=== PATIENT | female | born 1995 | race Caucasian/White ===

== ENCOUNTER 2017-02-06 22:34 | Emergency (ER) | payer SELFPAY ==
[~2017-02-06] VITALS: Ht 167.6 cm; Wt 68.0 kg
[2017-02-06] MEDS ORDERED: PROAIR HFA0.09 MG/AC IH (22:41)
[2017-02-06] MEDS ORDERED: SINGULAIR10 MG PO (22:42)
--- NOTE | 2017-02-06 22:48 | Emergency Room Report ---
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 N Clinical Suspician of Infection? N Mental Status: 1 - Regular (Normal Baseline) Sepsis Risk:Possible Sepsis Risk Have you (or family members/close friends) recently traveled outside the [place]? N If Yes, where/when: Have you had exposure to infectious disease within the past month? N TB? Other? Specify: Source patient, RN notes reviewed, family, old records Exam Limitations no limitations Comment wf with hx of asthma with acute episode and presents for treatment as she has no inhaler or pcp-denied fever/prod cough and no rash and denied Cardiac Chest Pain Chest pain indicative of cardiac No Timing/Duration this evening Severity moderate ALLERGIES Coded Allergies: No Known Allergies (02/06/17) Home Medications Reported Medications Albuterol Sulfate (Proair Hfa) 1 PUFF IH Q6HP PRN ASTHMA Montelukast Sodium (Singulair) 10 MG PO QHS History Medical History General CAD? No Angina: No [place]: No Hypertension? No Hyperlipidemia? No CHF? No DVT? No PE? No COPD? No Asthma? Yes Anemia? No GERD? No Gastric ulcers? No GI Bleed? No Hernia? No Thyroid Problems? No Hypothyroidism? No CVA? No Seizures? No Diabetes? No Renal Insuffiency? No End Stage Renal Disease? No UTI? No Stones? No BPH? No GB Disease: No Nephritic Syndrome? No Asplenia? No Hepatitis? No Sickle Cell Disease? No Arthritis? No Migraines? No Cataracts? No Glaucoma? No MRSA? No HIV? No TB? No Anxiety? Yes Depression? Yes Cancer? 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 Respiratory see HPI, cough, shortness of breath, wheezing Cardiovascular denies chest pain, denies syncope Gastrointestinal denies abdominal pain, denies diarrhea, denies vomiting Genitourinary denies: dysuria, frequency, hesitancy, hematuria. Musculoskeletal denies back pain, denies joint pain, denies joint swelling, denies neck pain Skin denies rash Psychiatric/Neurological denies headache, denies seizure Physical Exam Vital Signs Vital Signs Date Time Temp Pulse Resp B/P Pulse O2 O2 Flow FiO2 Ox Delivery Rate 02/07 2236 98.1 104 24 161/49 97 - WBC >12,000 or <4,000 or 10% bands? 2 or more SIRS Criteria Met? B/P:161/49 MAP:86 Creatinine >2.0? UA output<0.5ml/kg/hr for 2 hrs? Platelet count >100,000? Lactate >2.0mmol/1? INR >1.2 or PTT > than 60 sec? Evidence of Organ Dysfunction? Provider documented clinical suspician of infection? N Sepsis Criteria Count: 2 Sepsis Risk: Possible Sepsis Risk General Appearance no apparent distress Eye Exam - bilateral eye PERRL, bilateral eye EOMI Ear, Nose, Throat normal ENT inspection Neck supple Respiratory Status No: respiratory distress, use of accessory muscles. Lung Sounds bilateral: wheezing. 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 No Results/Orders Current Medication Orders Sig/Sujit Start time Last Medication Dose Route Stop Time Status Admin Albuterol 2 PUFFS ONCE ONE 02/06 2300 DC 02/06 IH 02/06 Miscellaneous 1 UNIT ONCE ONE 02/06 2300 DC 02/06 XX 02/06 Albuterol 0 .STK-MED ONE 02/06 2258 DC IH Albuterol/Ipratropium 0 .STK-MED ONE 02/06 2258 DC INH Miscellaneous 0 .STK-MED ONE 02/06 2258 DC XX Albuterol/Ipratropium 3 ML ONCE ONE 02/06 2245 DC 02/06 INH 02/06 2246 2304 Orders Procedure Date/time Status RT REQUEST ALBUTEROL INHALER 02/07 2248 Active RT REQUEST DUONEB 02/07 2244 Active Progress ED Progress Notes Date 02/06/17 Time 2322 Comment improved Departure Departure Time of Disposition 2318 Disposition DC Home or Self Care(routine) Clinical Impression Primary Impression: Asthma attack Condition STABLE Patient Instructions DI for Asthma -- Adult Additional Instructions use meds and see pcp for follow up Discharge Counseling Counseled pt/family regarding diagnosis, medications/RX, follow up needs Prescriptions Current Visit Scripts Prednisone (Prednisone 20MG) 20 MG PO BID #12 TAB ED Critical Care Critical Care No at 2322
--- NOTE | 2017-02-06 22:48 | Emergency Room Report ---
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 N Clinical Suspician of Infection? N Mental Status: 1 - Regular (Normal Baseline) Sepsis Risk:Possible Sepsis Risk Have you (or family members/close friends) recently traveled outside the [place]? N If Yes, where/when: Have you had exposure to infectious disease within the past month? N TB? Other? Specify: Source patient, RN notes reviewed, family, old records Exam Limitations no limitations Comment wf with hx of asthma with acute episode and presents for treatment as she has no inhaler or pcp-denied fever/prod cough and no rash and denied Cardiac Chest Pain Chest pain indicative of cardiac No Timing/Duration this evening Severity moderate ALLERGIES Coded Allergies: No Known Allergies (02/06/17) Home Medications Reported Medications Albuterol Sulfate (Proair Hfa) 1 PUFF IH Q6HP PRN ASTHMA Montelukast Sodium (Singulair) 10 MG PO QHS History Medical History General CAD? No Angina: No [place]: No Hypertension? No Hyperlipidemia? No CHF? No DVT? No PE? No COPD? No Asthma? Yes Anemia? No GERD? No Gastric ulcers? No GI Bleed? No Hernia? No Thyroid Problems? No Hypothyroidism? No CVA? No Seizures? No Diabetes? No Renal Insuffiency? No End Stage Renal Disease? No UTI? No Stones? No BPH? No GB Disease: No Nephritic Syndrome? No Asplenia? No Hepatitis? No Sickle Cell Disease? No Arthritis? No Migraines? No Cataracts? No Glaucoma? No MRSA? No HIV? No TB? No Anxiety? Yes Depression? Yes Cancer? 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 Respiratory see HPI, cough, shortness of breath, wheezing Cardiovascular denies chest pain, denies syncope Gastrointestinal denies abdominal pain, denies diarrhea, denies vomiting Genitourinary denies: dysuria, frequency, hesitancy, hematuria. Musculoskeletal denies back pain, denies joint pain, denies joint swelling, denies neck pain Skin denies rash Psychiatric/Neurological denies headache, denies seizure Physical Exam Vital Signs Vital Signs Date Time Temp Pulse Resp B/P Pulse O2 O2 Flow FiO2 Ox Delivery Rate 02/07 2236 98.1 104 24 161/49 97 - WBC >12,000 or <4,000 or 10% bands? 2 or more SIRS Criteria Met? B/P:161/49 MAP:86 Creatinine >2.0? UA output<0.5ml/kg/hr for 2 hrs? Platelet count >100,000? Lactate >2.0mmol/1? INR >1.2 or PTT > than 60 sec? Evidence of Organ Dysfunction? Provider documented clinical suspician of infection? N Sepsis Criteria Count: 2 Sepsis Risk: Possible Sepsis Risk General Appearance no apparent distress Eye Exam - bilateral eye PERRL, bilateral eye EOMI Ear, Nose, Throat normal ENT inspection Neck supple Respiratory Status No: respiratory distress, use of accessory muscles. Lung Sounds bilateral: wheezing. 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 No Results/Orders Current Medication Orders Sig/Sujit Start time Last Medication Dose Route Stop Time Status Admin Albuterol 2 PUFFS ONCE ONE 02/06 2300 DC 02/06 IH 02/06 Miscellaneous 1 UNIT ONCE ONE 02/06 2300 DC 02/06 XX 02/06 Albuterol 0 .STK-MED ONE 02/06 2258 DC IH Albuterol/Ipratropium 0 .STK-MED ONE 02/06 2258 DC INH Miscellaneous 0 .STK-MED ONE 02/06 2258 DC XX Albuterol/Ipratropium 3 ML ONCE ONE 02/06 2245 DC 02/06 INH 02/06 2246 2304 Orders Procedure Date/time Status RT REQUEST ALBUTEROL INHALER 02/07 2248 Active RT REQUEST DUONEB 02/07 2244 Active Progress ED Progress Notes Date 02/06/17 Time 2322 Comment improved Departure Departure Time of Disposition 2318 Disposition DC Home or Self Care(routine) Clinical Impression Primary Impression: Asthma attack Condition STABLE Patient Instructions DI for Asthma -- Adult Additional Instructions use meds and see pcp for follow up Discharge Counseling Counseled pt/family regarding diagnosis, medications/RX, follow up needs Prescriptions Current Visit Scripts Prednisone (Prednisone 20MG) 20 MG PO BID #12 TAB ED Critical Care Critical Care No at 2320
[2017-02-06] MEDS ORDERED: PREDNISONE 20MG20 MG PO (23:23)
[2017-02-06 23:45] VITALS: BP 131/78
== END 2017-02-06 23:46 | disposition home or self-care (01) ==
LOC: ER 22:34
DX: J45.901 Unspecified asthma with (acute) exacerbation (principal)

== ENCOUNTER 2017-03-27 18:45 | Emergency (ER) | payer MEDICAID ==
[~2017-03-27] VITALS: Ht 167.6 cm; Wt 65.8 kg
[~2017-03-27 18:45] MED LIST: PREDNISONE 20MG20 MG PO; PROAIR HFA0.09 MG/AC IH; SINGULAIR10 MG PO
[2017-03-27 19:03] LABS: HEMOGLOBIN 12.3 g/dL (12.2-16.2); LYMPH # 1.7 K/mm3 (0.7-4.5)
--- OUTSIDE RECORDS SUMMARY | 2017-03-27 19:19 | External Medical Summary Rpt | CCD ---
Author Author , YOLY FREDERICK Address Unknown Phone [email or web address] Purpose Continuity of Care Document - through 2016 Problems Code Diagnosis DOS Provider Status J45.901 UNSPECIFIED ASTHMA WITH (ACUTE) EXACERBATIO N
--- OUTSIDE RECORDS SUMMARY | 2017-03-27 19:19 | External Medical Summary Rpt | CCD ---
Demographics Preferred Language Burmese Marital Status Unknown Episcopalian Affiliation Unknown Race Unknown Ethnic Group Unknown Author Author , YOLY FREDERICK Address Unknown Phone Immunization Unable to retrieve immunization data due to connection failure with Immunization Registry. Please try again later.
--- OUTSIDE RECORDS SUMMARY | 2017-03-27 19:19 | External Medical Summary Rpt | CCD ---
Demographics Preferred Language Omani Marital Status Unknown Tenriism Affiliation Unknown Race Unknown Ethnic Group Unknown Author Author , YOLY FREDERICK Address Unknown Phone Immunization Unable to retrieve immunization data due to connection failure with Immunization Registry. Please try again later.
--- OUTSIDE RECORDS SUMMARY | 2017-03-27 19:19 | External Medical Summary Rpt | CCD ---
Author Author , YOLY FREDERICK Address Unknown Phone Purpose Continuity of Care Document - through 2016 Problems Code Diagnosis DOS Provider Status J45.901 UNSPECIFIED ASTHMA WITH (ACUTE) EXACERBATIO N
--- OUTSIDE RECORDS SUMMARY | 2017-03-27 19:19 | External Medical Summary Rpt ---
Author Author YOLY Albarado, YOLY Albarado Organization [employer] Address Unknown Phone Unavailable
--- OUTSIDE RECORDS SUMMARY | 2017-03-27 19:19 | External Medical Summary Rpt | CCD ---
Author Author [employer] Organization [employer] Address Unknown Phone Unavailable Purpose Continuity of Care Document - through 2016
--- NOTE | 2017-03-27 19:30 | Emergency Room Report ---
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 N Clinical Suspician of Infection? N Mental Status: 1 - Regular (Normal Baseline) Sepsis Risk:Possible Sepsis Risk Have you (or family members/close friends) recently traveled outside the [place]? N If Yes, where/when: Have you had exposure to infectious disease within the past month? TB? Other? Specify: Source patient, RN notes reviewed, family, old records Exam Limitations no limitations Comment pt with hx of astma with acute episode tonight Cardiac Chest Pain Chest pain indicative of cardiac No Timing/Duration this evening Severity moderate ALLERGIES Coded Allergies: No Known Allergies (02/06/17) Home Medications Reported Medications Albuterol Sulfate (Proair Hfa) 1 PUFF IH Q6HP PRN ASTHMA Montelukast Sodium (Singulair) 10 MG PO QHS History Medical History General CAD? No Angina: No [place]: No Hypertension? No Hyperlipidemia? No CHF? No DVT? No PE? No COPD? No Asthma? Yes Anemia? No GERD? No Gastric ulcers? No GI Bleed? No Hernia? No Thyroid Problems? No Hypothyroidism? No CVA? No Seizures? No Diabetes? No Renal Insuffiency? No End Stage Renal Disease? No UTI? No Stones? No BPH? No GB Disease: No Nephritic Syndrome? No Asplenia? No Hepatitis? No Sickle Cell Disease? No Arthritis? No Migraines? No Cataracts? No Glaucoma? No MRSA? No HIV? No TB? No Anxiety? Yes Depression? Yes Cancer? 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 Respiratory see HPI, cough, shortness of breath, wheezing Cardiovascular denies chest pain, denies syncope Gastrointestinal denies abdominal pain, denies diarrhea, denies vomiting Genitourinary denies: dysuria, frequency, hesitancy, hematuria. Musculoskeletal denies back pain, denies joint pain, denies joint swelling, denies neck pain Skin denies rash Psychiatric/Neurological denies headache, denies seizure Physical Exam Vital Signs Vital Signs Date Time Temp Pulse Resp B/P Pulse O2 O2 Flow FiO2 Ox Delivery Rate 03/277 98.4 116 26 154/59 97 - WBC >12,000 or <4,000 or 10% bands? 2 or more SIRS Criteria Met? B/P:154/59 MAP:90 Creatinine >2.0? UA output<0.5ml/kg/hr for 2 hrs? Platelet count >100,000? Lactate >2.0mmol/1? INR >1.2 or PTT > than 60 sec? Evidence of Organ Dysfunction? Provider documented clinical suspician of infection? N Sepsis Criteria Count: 2 Sepsis Risk: Possible Sepsis Risk General Appearance no apparent distress Eye Exam - bilateral eye PERRL, bilateral eye EOMI Ear, Nose, Throat normal ENT inspection Neck supple Respiratory Status No: respiratory distress, use of accessory muscles. Lung Sounds bilateral: wheezing. 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 No Results/Orders Laboratory Tests 03/27/17 1852: Sodium 141, Potassium 3.9, Chloride 108 H, Carbon Dioxide 26, BUN 13, Creatinine 0.7, Estimated Creat Clear 134, Estimated GFR (MDRD) 108, Glucose 81, Calcium 8.6, Total Bilirubin 0.3, AST 9 L, ALT 15, Alkaline Phosphatase 65, Total Protein 6.9, Albumin 3.8, Globulin 3.1, Albumin/Globulin Ratio 1.2, WBC 8.1, RBC 4.52, Hgb 12.3, Hct 37.4, MCV 82.7, RDW 14.4, Plt Count 277, MPV 7.2 L , Gran % 64.4, Gran # 5.2, Lymphocytes % 21.0, Monocytes % 7.9, Eosinophils % 5.8, Basophils % 0.9, Lymphocytes # 1.7, Monocytes # 0.6, Eosinophils # 0.5 H, Basophils # 0.1, PUBS MCHC 32.8, MCH 27.2 Current Medication Orders Sig/Sujit Start time Last Medication Dose Route Stop Time Status Admin Albuterol 2 PUFFS ONCE ONE 03/27 1945 AC IH 03/27 1946 Miscellaneous 1 UNIT ONCE ONE 03/27 1945 AC XX 03/27 1946 Albuterol 0 .STK-MED ONE 03/27 1937 DC IH Miscellaneous 0 .STK-MED ONE 03/27 1937 DC XX Albuterol 2.5 MG ONCE ONE 03/27 1900 DC 03/27 INH 03/27 Methylprednisolone 125 MG ONCE ONE 03/27 1900 DC 03/27 Sodium Succinate IV 03/27 Sodium Chloride 10 ML PRN PRN 03/27 1900 AC IV 03/28 1852 Methylprednisolone 0 .STK-MED ONE 03/27 1854 DC Sodium Succinate .ROUTE Albuterol 0 .STK-MED ONE 03/27 1850 DC INH Orders Procedure Date/time Status RT REQUEST ALBUTEROL INHALER 03/27 1934 Active CHEST(2 VIEWS-NOT PORTABLE) 03/27 1857 Active URINE 03/27 1857 Complete RT REQUEST ALBUTEROL NEB 03/27 1853 Active IV SALINE LOCK 03/27 1852 Active CBC WITH AUTO DIFF 03/27 1852 Complete CHEM 12 PROFILE 03/27 1852 Complete XRAY/CT/US XRAY/CT/US XRAY chest XR interpretation by reviewed by me Xray Results normal/NAD Departure Departure Time of Disposition 1935 Disposition DC Home or Self Care(routine) Clinical Impression Primary Impression: Asthma attack Qualifiers: Asthma severity: moderate Asthma persistence: unspecified Qualified Code: J45.901 - Unspecified asthma with (acute) exacerbation Condition STABLE Patient Instructions DI for Asthma -- Adult Additional Instructions use meds and see pcp for follow up Discharge Counseling Counseled pt/family regarding diagnosis, test results, medications/RX, follow up needs Prescriptions Current Visit Scripts Prednisone (Prednisone 20MG) 20 MG PO BID #10 TAB ED Critical Care Critical Care No at 1937
[2017-03-27] MEDS ORDERED: PREDNISONE 20MG20 MG PO (19:37)
[2017-03-27 19:48] VITALS: BP 154/59
--- NOTE | 2017-03-27 21:44 | RADIOLOGY REPORT PS360 ---
CHEST(2 VIEWS-NOT PORTABLE) HISTORY: Shortness of breath with wheezing ASTHMA ATTACK ORDERING PHYSICIAN: Rajendra Bowles MD PATIENT AGE: 21 years COMPARISON: None available FINDINGS: The cardiomediastinal silhouette and pulmonary vascularity are within normal limits. The lungs are clear without infiltrates, suspicious nodules, or pleural effusions. No acute bony abnormalities. IMPRESSION: Negative chest, no acute finding
== END 2017-03-27 19:48 | disposition home or self-care (01) ==
LOC: ER 18:45
PROVIDERS: Emergency Medicine
DX: J45.901 Unspecified asthma with (acute) exacerbation (principal)

== ENCOUNTER 2017-03-31 17:57 | Emergency (ER) | payer MEDICAID ==
[~2017-03-31] VITALS: Ht 167.6 cm; Wt 68.0 kg
--- OUTSIDE RECORDS SUMMARY | 2017-03-31 18:19 | External Medical Summary Rpt | CCD ---
Author Author , [employer] Organization [employer] Address Unknown Phone [email or web address] Purpose Continuity of Care Document - 03-27-2017 through 2016 Problems Code Diagnosis DOS Provider Status J45.901 UNSPECIFIED ASTHMA WITH (ACUTE) EXACERBATIO N Results Labs Lab Lab Date Result Refere Interp Status Commen Order Detail nces retati t Range on Urine test (03-27-2017 19:03) Urine = NEG complet pregnan 017 NEGATIV ed cy test 19:03 E Comprehensive metabolic panel (03-27-2017 18:52) Protein = 6.9 6.4-8.2 complet total 017 gm/dL ed ser/wiliam 18:52 s ALT = 15 12-78 complet (SGPT) 017 U/L ed ser/wiliam 18:52 s Serum = 9 U/L 15-37 complet or 017 ed plasma 18:52 asparta te aminotr ansfera Serum = 141 136-145 complet sodium 017 mmoL/L ed measure 18:52 ment Serum = 3.9 3.5-5.1 complet potassi 017 mmoL/L ed um 18:52 measure ment Serum = 81 74-106 complet or 017 mg/dL ed plasma 18:52 glucose measure ment (mas Serum = 3.1 1.3-3.2 complet globuli 017 gm/dL ed n 18:52 measure ment (mass/v olume) Estimat = 108 59- complet ed 017 ML/MIN ed glomeru 18:52 lar filtrat ion rate (GF Comment: REFERENCE RANGE: >60 ML/MIN/1.73 SQUARE METERS Comment: If this patient is -Nigerien, then multiply the Comment: result by 1.210. Estimat = 134 50-200 complet ion of 017 ML/MIN ed creatin 18:52 ine renal clearan ce Serum = 0.7 0.55-1. complet or 017 mg/dL 02 ed plasma 18:52 creatin ine measure ment ( Carbon = 26 21.0-32 complet dioxide 017 mmoL/L .0 ed 18:52 measure ment Serum = 108 98-107 complet or 017 mmoL/L ed plasma 18:52 chlorid e measure ment (mo Serum = 8.6 8.5-10. complet or 017 mg/dL 1 ed plasma 18:52 calcium measure ment (mas Serum = 13 7-18 complet or 017 mg/dL ed plasma 18:52 urea nitroge n measure men Serum = 0.3 0.2-1.0 complet or 017 mg/dL ed plasma 18:52 total bilirub in measure m Serum = 65 46-116 complet or 017 U/L ed plasma 18:52 alkalin e phospha tase clifton Serum = 3.8 3.4-5.0 complet or 017 gm/dL ed plasma 18:52 albumin measure ment (mas Serum = 1.2 1.1-1.8 complet or 017 ed plasma 18:52 albumin /globul in mass ra
--- OUTSIDE RECORDS SUMMARY | 2017-03-31 18:19 | External Medical Summary Rpt | CCD ---
Author Author , [employer] Organization [employer] Address Unknown Phone [email or web address] Purpose Continuity of Care Document - 03-27-2017 [...] SQUARE METERS Comment: If this patient is -Nepalese, then multiply the Comment: result by 1.210. [...]
--- OUTSIDE RECORDS SUMMARY | 2017-03-31 18:20 | External Medical Summary Rpt ---
Author Author NILAMARY Albarado, [employer] Organization [employer] Address Unknown Phone Unavailable Results Choriogonadotropin.beta subunit [Units] in 24 hour Urine Observa Value Referen Units Interpr Notes Date tion ce etation Range Choriogon NEG No No No Mar 27 adotropin informati informati informati 2017 7:03 .beta on in on in on in PM subunit source source source [Units] data data data in 24 hour Urine Comprehensive metabolic 2000 panel in Serum or Plasma Observa Value Referen Units Interpr Notes Date tion ce etation Range Albumin/G 1.1 - 1.8 No Normal No Mar 27 lobulin informati informati 2016 6:52 [Mass on in on in PM ratio] in source source Serum or data data Plasma Albumin 3.4 - 5.0 gm/dL Normal No Mar 27 [Mass/vol informati 2017 6:52 ume] in on in PM Serum or source Plasma data Alkaline 46 - 116 U/L Normal No Mar 27 phosphata informati 2016 6:52 se on in PM [Enzymati source c data activity/ volume] in Serum or Plasma Bilirubin 0.2 - 1.0 mg/dL Normal No Mar 27 .total informati 2016 6:52 [Mass/vol on in PM ume] in source Serum or data Plasma Urea 7 - 18 mg/dL Normal No Mar 27 nitrogen informati 2017 6:52 [Mass/vol on in PM ume] in source Serum or data Plasma Calcium 8.5 - mg/dL Normal No Mar 27 [Mass/vol 10.1 informati 2017 6:52 ume] in on in PM Serum or source Plasma data Chloride 98 - 107 mmoL/L High No Mar 27 [Moles/vo informati 2017 6:52 lume] in on in PM Serum or source Plasma data Carbon 21.0 - mmoL/L Normal No Mar 27 dioxide, 32.0 informati 2017 6:52 total on in PM [Moles/vo source lume] in data Serum or Plasma Creatinin 0.55 - mg/dL Normal No Nov 9 e 1.02 informati 2016 6:52 [Mass/vol on in PM ume] in source Serum or data Plasma Creatinin 50 - 200 ML/MIN Normal No Mar 27 e renal informati 2016 6:52 clearance on in PM source predicted data by Cockcroft -Gault formula Estimated 59- ML/MIN No REFERENCE Mar 27 informati RANGE: 2017 6:52 glomerula on in >60 PM r source ML/MIN/1. filtratio data 73 SQUARE n rate METERSIf (GF this patient is -A merican, then multiply theresult by 1.210. Globulin 1.3 - 3.2 gm/dL Normal No Mar 27 [Mass/vol informati 2016 6:52 ume] in on in PM Serum source data Glucose 74 - 106 mg/dL Normal No Mar 27 [Mass/vol informati 2016 6:52 ume] in on in PM Serum or source Plasma data Potassium 3.5 - 5.1 mmoL/L Normal No Mar 272016 6:52 [Moles/vo on in PM lume] in source Serum or data Plasma Sodium 136 - 145 mmoL/L Normal No Mar 27 [Moles/vo informati 2016 6:52 lume] in on in PM Serum or source Plasma data Aspartate 15 - 37 U/L Low No Mar 27 informati 2016 6:52 aminotran on in PM sferase source [Enzymati data c activity/ volume] in Serum or Plasma Alanine 12 - 78 U/L Normal No Mar 27 aminotran informati 2016 6:52 sferase on in PM [Enzymati source c data activity/ volume] in Serum or Plasma Protein 6.4 - 8.2 gm/dL Normal No Mar 27 [Mass/vol informati 2016 6:52 ume] in on in PM Serum or source Plasma data CBC W Auto Differential panel in Blood Observa Value Referen Units Interpr Notes Date tion ce etation Range Basophils 0 - 0.2 K/MM3 Normal No Mar 27 inform2016 6:52 [#/volume on in PM ] in source Blood by data Automated count Basophils 0.1 - 2.0 % Normal No Mar 27 /100 informati 2017 6:52 leukocyte on in PM s in source Blood by data Automated count Eosinophi 0.0 - 0.4 K/mm3 High No Mar 27 ls informati 2016 6:52 [#/volume on in PM ] in source Blood by data Automated count Eosinophi 0.1 - % Normal Mar 27 ls/100 12.0 informati 2017 6:52 leukocyte on in PM s in source Blood by data Automated count Granulocy 1.8 - 7.8 K/mm3 Normal No Mar 27 amadeo informati 2016 6:52 [#/volume on in PM ] in source Blood by data Automated count Granulocy 37.0 - % Normal Mar 27 amadeo/100 80.0 informati 2016 6:52 leukocyte on in PM s in source Blood by data Automated count Hematocri 37.0 - % Normal No Mar 27 t [Volume 47.0 informati 2016 6:52 on in PM Fraction] source of Blood data Hemoglobi 12.2 - g/dL Normal Mar 27 n 16.2 informati 2016 6:52 [Mass/vol on in PM ume] in source Blood data Lymphocyt 0.7 - 4.5 K/mm3 Normal Mar 27 es informati 2016 6:52 [#/volume on in PM ] in source Unspecifi data ed specimen by Automated count Lymphocyt 10 - 50.0 % Normal No Mar 27 informati 2016 6:52 [#/volume on in PM ] in source Unspecifi data ed specimen by Automated count Erythrocy 27 - 31.2 pg Normal Mar 27 te mean informati 2016 6:52 corpuscul on in PM ar source hemoglobi data n [Entitic mass] Erythrocy 31.8 - g/dl Normal Mar 27 te mean 35.4 informati 2016 6:52 corpuscul on in PM ar source hemoglobi data n concentra tion [Mass/vol ume] by Automated count Erythrocy 82.2 - fl Normal Mar 27 te mean 97.8 informati 2016 6:52 corpuscul on in PM ar volume source [Entitic data volume] by Automated count Monocytes 0.1 - 1.0 K/mm3 Normal Mar 27 informati 2016 6:52 [#/volume on in PM ] in source Blood by data Automated count Monocytes 1.7 - 9.3 % Normal No Mar 27 informati 2016 6:52 leukocyte on in PM s in source Blood by data Automated count Platelet 7.4 - fl Low Mar 27 mean 10.4 informati 2016 6:52 volume on in PM [Entitic source volume] data in Blood by Automated count Platelets 142 - 424 K/mm3 Normal No Mar 27 informati 2017 6:52 [#/volume on in PM ] in source Blood data Erythrocy 4.2 - 5.4 M/mm3 Normal No Mar 27 amadeo informati 2017 6:52 [#/volume on in PM ] in source Amniotic data fluid Erythrocy 11.5 - % Normal No Mar 27 te 17.5 informati 2017 6:52 distribut on in PM ion width source [Entitic data volume] by Automated count Leukocyte 4.5 - K/MM3 Normal No Mar 27 s 13.0 informati 2017 6:52 [#/volume on in PM ] in source Blood data
--- OUTSIDE RECORDS SUMMARY | 2017-03-31 18:20 | External Medical Summary Rpt | CCD ---
Demographics Preferred Language Greek Marital Status Unknown Jain Affiliation Unknown Race Unknown Ethnic Group Unknown Author Author , YOLY FREDERICK Address Unknown Phone Immunization No patient found.
--- OUTSIDE RECORDS SUMMARY | 2017-03-31 18:20 | External Medical Summary Rpt | CCD ---
Demographics Preferred Language Estonian Marital Status Unknown Muslim Affiliation Unknown Race Unknown Ethnic Group Unknown Author Author , YOLY FREDERICK Address Unknown Phone Immunization No patient found.
[2017-03-31] MEDS ORDERED: PROVENTIL0.09 MG/A1 IH (18:32)
[2017-03-31] MEDS ORDERED: AMOXICILLIN500 M2 PO (18:33)
--- NOTE | 2017-03-31 18:34 | Emergency Room Report ---
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 N Clinical Suspician of Infection? Y Mental Status: 1 - Regular (Normal Baseline) Sepsis Risk:Severe Sepsis Risk Have you (or family members/close friends) recently traveled outside the [place]? N If Yes, where/when: Have you had exposure to infectious disease within the past month? TB? Other? Specify: Source patient, RN notes reviewed, family, RN/MD Exam Limitations no limitations Comment This 21-year-old female patient sent in to the emergency room with shortness of breath, ongoing for the past one week, gradually getting worse, after she ran out of her short-acting beta agonist inhalers. Patient was seen here recently, with similar complaints and she was sent home with a prescription for albuterol metered dose inhaler, which she has used up in less than one week. The pharmacist would not allow her to fill another prescription since is too soon. ALLERGIES Coded Allergies: No Known Allergies (03/31/17) Home Medications Active Scripts Prednisone (Prednisone 20MG) 20 MG PO BID #10 TAB Prov: 03/27/17 Reported Medications Albuterol Sulfate (Proair Hfa) 1 PUFF IH Q6HP PRN ASTHMA Montelukast Sodium (Singulair) 10 MG PO QHS History Medical History General CAD? No Angina: No [place]: No Hypertension? No Hyperlipidemia? No CHF? No DVT? No PE? No COPD? No Asthma? Yes Anemia? No GERD? No Gastric ulcers? No GI Bleed? No Hernia? No Thyroid Problems? No Hypothyroidism? No CVA? No Seizures? No Diabetes? No Renal Insuffiency? No End Stage Renal Disease? No UTI? No Stones? No BPH? No GB Disease: No Nephritic Syndrome? No Asplenia? No Hepatitis? No Sickle Cell Disease? No Arthritis? No Migraines? No Cataracts? No Glaucoma? No MRSA? No HIV? No TB? No Anxiety? Yes Depression? Yes Cancer? 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 No: respiratory distress. Lung Sounds bilateral: wheezing. Cardiovascular normal exam, regular rate/rhythm, no peripheral edema, no gallop, no JVD, no murmur, no rub, normal peripheral pulses Gastrointestinal normal bowel sounds, normal exam, non tender, soft, no organomegaly Extremities non-tender, normal range of motion, normal inspection Neurologic alert, abalone processor II-XII nml as tested, normal exam, oriented x 3 Mental status normal mood/affect Skin intact, normal color, warm/dry Medical Decision Making LABS/Meds/Orders Pt receiving controlled substance in ED? No Comment 1814-upon reevaluation patient appears medically stable, clinically improving, with significantly diminished wheezing. Patient will be sent home with take home metered dose inhaler for additional detail, take home Advair Diskus, and she also received a Depo-Medrol shot here. Results/Orders Orders Procedure Date/time Status RT REQUEST ALBUTEROL INHALER 03/31 1829 Active RT REQUEST ALBUTEROL NEB 03/31 1829 Active RT REQUEST ALBUTEROL NEB 03/31 1804 Active Departure Departure Time of Disposition 183 Disposition DC Home or Self Care(routine) Clinical Impression Primary Impression: Asthma exacerbation Qualifiers: Asthma severity: mild Asthma persistence: unspecified Qualified Code: J45.901 - Unspecified asthma with (acute) exacerbation Secondary Impressions: Acute bronchitis Qualifiers: Bronchitis organism: unspecified organism Qualified Code: J20.9 - Acute bronchitis, unspecified Condition STABLE Referrals Jelena TURCIOS,Chas Rodrigues: 2 Days-Call Office EVEN IF BETTER Patient Instructions DI for Acute Bronchitis, DI for Asthma -- Adult Additional Instructions Follow up with PCP within 2 days! Discharge Counseling Counseled pt/family regarding diagnosis, medications/RX, home care, follow up needs, alcohol counseling,> 3min Prescriptions Current Visit Scripts ALBUTEROL (Proventil Hfa Inhaler) 1-2 PUFF IH Q4-6H PRN #1 CAN Ref 2 Amoxicillin (Amoxicillin 500MG Tab) 500 MG PO TID #30 TAB Montelukast Sodium (Singulair) 10 MG PO QHS #30 TAB Ref 5 Salmeterol 50/Fluticasone 250 (Advair 250-50 Diskus) 1 PUFF IN BID #1 INH Ref 5 ED Critical Care Critical Care No at 1007 Additional Instructions Follow up with PCP within 2 days! Discharge Counseling Counseled pt/family regarding diagnosis, medications/RX, home care, follow up needs, alcohol counseling,> 3min Prescriptions Current Visit Scripts ALBUTEROL (Proventil Hfa Inhaler) 1-2 PUFF IH Q4-6H PRN #1 CAN Ref 2 Amoxicillin (Amoxicillin 500MG Tab) 500 MG PO TID #30 TAB Montelukast Sodium (Singulair) 10 MG PO QHS #30 TAB Ref 5 Salmeterol 50/Fluticasone 250 (Advair 250-50 Diskus) 1 PUFF IN BID #1 INH Ref 5 ED Critical Care Critical Care No
--- NOTE | 2017-03-31 18:34 | Emergency Room Report ---
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 N Clinical Suspician of Infection? Y Mental Status: 1 - Regular (Normal Baseline) Sepsis Risk:Severe Sepsis Risk Have you (or family members/close friends) recently traveled outside the [place]? N If Yes, where/when: Have you had exposure to infectious disease within the past month? TB? Other? Specify: Source patient, RN notes reviewed, family, RN/MD Exam Limitations no limitations Comment This 21-year-old female patient sent in to the emergency room with shortness of breath, ongoing for the past one week, gradually getting worse, after she ran out of her short-acting beta agonist inhalers. Patient was seen here recently, with similar complaints and she was sent home with a prescription for albuterol metered dose inhaler, which she has used up in less than one week. The pharmacist would not allow her to fill another prescription since is too soon. ALLERGIES Coded Allergies: No Known Allergies (03/31/17) Home Medications Active Scripts Prednisone (Prednisone 20MG) 20 MG PO BID #10 TAB Prov: 03/27/17 Reported Medications Albuterol Sulfate (Proair Hfa) 1 PUFF IH Q6HP PRN ASTHMA Montelukast Sodium (Singulair) 10 MG PO QHS History Medical History General CAD? No Angina: No CT: No Hypertension? No Hyperlipidemia? No CHF? No DVT? No PE? No COPD? No Asthma? Yes Anemia? No GERD? No Gastric ulcers? No GI Bleed? No Hernia? No Thyroid Problems? No Hypothyroidism? No CVA? No Seizures? No Diabetes? No Renal Insuffiency? No End Stage Renal Disease? No UTI? No Stones? No BPH? No GB Disease: No Nephritic Syndrome? No Asplenia? No Hepatitis? No Sickle Cell Disease? No Arthritis? No Migraines? No Cataracts? No Glaucoma? No MRSA? No HIV? No TB? No Anxiety? Yes Depression? Yes Cancer? 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 No: respiratory distress. Lung Sounds bilateral: wheezing. 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 No Comment 1814-upon reevaluation patient appears medically stable, clinically improving, with significantly diminished wheezing. Patient will be sent home with take home metered dose inhaler for additional detail, take home Advair Diskus, and she also received a Depo-Medrol shot here. Results/Orders Orders Procedure Date/time Status RT REQUEST ALBUTEROL INHALER 03/31 1829 Active RT REQUEST ALBUTEROL NEB 03/31 1829 Active RT REQUEST ALBUTEROL NEB 03/31 1804 Active Departure Departure Time of Disposition 183 Disposition DC Home or Self Care(routine) Clinical Impression Primary Impression: Asthma exacerbation Qualifiers: Asthma severity: mild Asthma persistence: unspecified Qualified Code: J45.901 - Unspecified asthma with (acute) exacerbation Secondary Impressions: Acute bronchitis Qualifiers: Bronchitis organism: unspecified organism Qualified Code: J20.9 - Acute bronchitis, unspecified Condition STABLE Referrals Jelena TURCIOS,Chas Rodrigues: 2 Days-Call Office EVEN IF BETTER Patient Instructions DI for Acute Bronchitis, DI for Asthma -- Adult Additional Instructions Follow up with PCP within 2 days! Discharge Counseling Counseled pt/family regarding diagnosis, medications/RX, home care, follow up needs, alcohol counseling,> 3min Prescriptions Current Visit Scripts ALBUTEROL (Proventil Hfa Inhaler) 1-2 PUFF IH Q4-6H PRN #1 CAN Ref 2 Amoxicillin (Amoxicillin 500MG Tab) 500 MG PO TID #30 TAB Montelukast Sodium (Singulair) 10 MG PO QHS #30 TAB Ref 5 Salmeterol 50/Fluticasone 250 (Advair 250-50 Diskus) 1 PUFF IN BID #1 INH Ref 5 ED Critical Care Critical Care No at 1007 Additional Instructions Follow up with PCP within 2 days! Discharge Counseling Counseled pt/family regarding diagnosis, medications/RX, home care, follow up needs, alcohol counseling,> 3min Prescriptions Current Visit Scripts ALBUTEROL (Proventil Hfa Inhaler) 1-2 PUFF IH Q4-6H PRN #1 CAN Ref 2 Amoxicillin (Amoxicillin 500MG Tab) 500 MG PO TID #30 TAB Montelukast Sodium (Singulair) 10 MG PO QHS #30 TAB Ref 5 Salmeterol 50/Fluticasone 250 (Advair 250-50 Diskus) 1 PUFF IN BID #1 INH Ref 5 ED Critical Care Critical Care No
[2017-03-31] MEDS ORDERED: SINGULAIR10 MG PO (18:37)
[2017-03-31] MEDS ORDERED: SALMETEROL-F28 PUFFS IN (18:38)
[2017-03-31 18:55] VITALS: BP 138/103
== END 2017-03-31 18:56 | disposition home or self-care (01) ==
LOC: ER 17:57
DX: J45.901 Unspecified asthma with (acute) exacerbation (principal); J20.9 Acute bronchitis, unspecified; Z79.52 Long term (current) use of systemic steroids; Z79.899 Other long term (current) drug therapy
CPT/HCPCS: J1030

== ENCOUNTER 2017-04-12 22:17 | Emergency (ER) | payer MEDICAID ==
[~2017-04-12] VITALS: Ht 167.6 cm; Wt 65.8 kg
[~2017-04-12 22:17] MED LIST changes: +AMOXICILLIN500 M2 PO; +PROVENTIL0.09 MG/A1 IH; +SALMETEROL-F28 PUFFS IN
--- OUTSIDE RECORDS SUMMARY | 2017-04-12 22:24 | External Medical Summary Rpt | CCD ---
Author Author , YOLY FREDERICK Address Unknown Phone [email or web address] Care Team Providers Care Assisted Living Manager Name Role Phone [facility], [facility] Purpose Continuity of Care Document - 03-27-2017 through 2016 Problems Code Diagnosis DOS Provider Status [id number] UNSPECIFIED 03-27-2017 [facility] EXAC[facility] N J20.9 ACUTE BRONCHITIS, UNSPECIFIED J45.901 UNSPECIFIED ASTHMA WITH (ACUTE) EXACERBATIO N Results Labs Lab Lab Date Result Refere Interp Status Commen Order Detail nces retati t Range on Urine test (03-27-2017 19:03) Urine = NEG complet pregnan 017 NEGATIV ed cy test 19:03 E Comprehensive metabolic panel (03-27-2017 18:52) Serum = 1.2 1.1-1.8 complet or 017 ed plasma 18:52 albumin /globul in mass ra Serum = 3.8 3.4-5.0 complet or 017 gm/dL ed plasma 18:52 albumin measure ment (mas Serum = 65 46-116 complet or 017 U/L ed plasma 18:52 alkalin e phospha tase [place] Serum = 0.3 0.2-1.0 complet or 017 mg/dL ed plasma 18:52 total bilirub in measure m Serum = 13 7-18 complet or 017 mg/dL ed plasma 18:52 urea nitroge n measure men Serum = 8.6 8.5-10. complet or 017 mg/dL 1 ed plasma 18:52 calcium measure ment (mas Serum = 108 98-107 complet or 017 mmoL/L ed plasma 18:52 chlorid e measure ment (mo Carbon = 26 21.0-32 complet dioxide 017 mmoL/L .0 ed 18:52 measure ment Serum = 0.7 0.55-1. complet or 017 mg/dL 02 ed plasma 18:52 creatin ine measure ment ( Estimat = 134 50-200 complet ion of 017 ML/MIN ed creatin 18:52 ine renal clearan ce Estimat = 108 59- complet ed 017 ML/MIN ed glomeru 18:52 lar filtrat ion rate (GF Comment: REFERENCE RANGE: >60 ML/MIN/1.73 SQUARE METERS Comment: If this patient is -Japanese, then multiply the Comment: result by 1.210. Serum = 3.1 1.3-3.2 complet globuli 017 gm/dL ed n 18:52 measure ment (mass/v olume) Serum = 81 74-106 complet or 017 mg/dL ed plasma 18:52 glucose measure ment (mas Serum = 3.9 3.5-5.1 complet potassi 017 mmoL/L ed um 18:52 measure ment Serum = 141 136-145 complet sodium 017 mmoL/L ed measure 18:52 ment Serum = 9 U/L 15-37 complet or 017 ed plasma 18:52 asparta te aminotr ansfera ALT = 15 12-78 complet (SGPT) 017 U/L ed ser/wiliam 18:52 s Protein = 6.9 6.4-8.2 complet total 017 gm/dL ed ser/wiliam 18:52 s
--- OUTSIDE RECORDS SUMMARY | 2017-04-12 22:24 | External Medical Summary Rpt | CCD ---
Demographics Preferred Language Slovenian Marital Status Unknown Episcopalian Affiliation Unknown Race Unknown Ethnic Group Unknown Author Author , YOLY FREDERICK Address Unknown Phone Immunization No patient found.
--- OUTSIDE RECORDS SUMMARY | 2017-04-12 22:24 | External Medical Summary Rpt | CCD ---
Demographics Preferred Language Icelandic Marital Status Unknown Confucianist Affiliation Unknown Race Unknown Ethnic Group Unknown Author Author , YOLY FREDERICK Address Unknown Phone Immunization No patient found.
--- OUTSIDE RECORDS SUMMARY | 2017-04-12 22:24 | External Medical Summary Rpt | CCD ---
Author Author , YOLY FREDERICK Address Unknown Phone [email or web address] Care Team Providers Care Animal Scientist Name Role Phone [facility] Purpose Continuity of Care Document - 03-27-2017 through 2016 Problems Code Diagnosis DOS Provider Status [id number] UNSPECIFIED 03-27-2017 [facility] EXACERBATIO N
--- OUTSIDE RECORDS SUMMARY | 2017-04-12 22:24 | External Medical Summary Rpt | CCD ---
Author Author , YOLY FREDERICK Address Unknown Phone [email or web address] Care Team Providers Care Millstone Cleaner Name Role Phone [facility] Purpose Continuity of Care Document - 03-27-2017 through 2016 Problems Code Diagnosis DOS Provider Status [id number] UNSPECIFIED 03-27-2017 [facility] EXACERBATIO N
--- OUTSIDE RECORDS SUMMARY | 2017-04-12 22:24 | External Medical Summary Rpt ---
Author Author [facility], [facility] Organization [facility] Address Unknown [...]
--- OUTSIDE RECORDS SUMMARY | 2017-04-12 22:24 | External Medical Summary Rpt | CCD ---
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 [...]
--- NOTE | 2017-04-12 22:30 | Emergency Room Report ---
History of Present Illness Time Seen by MD Jaramillo Presenting Problem in Triage Pt arrived:Walked Presenting Problem:c/o sob and cough. Wheezes bialterally. 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 N Clinical Suspician of Infection? N Mental Status: 1 - Regular (Normal Baseline) Sepsis Risk:Severe Sepsis Risk Have you (or family members/close friends) recently traveled outside the [place]? N If Yes, where/when: Have you had exposure to infectious disease within the past month? N TB? Other? Specify: Comment The patient has a history of asthma and complains of an asthma attack that started a few hours ago. No treatment at home, she says she has nothing to use at home. She recently moved to this area and does not yet have a family physician because of lack of insurance. She also cannot fill prescriptions because of lack of insurance. She has been seen in this emergency department 3 times since 02/06/17 for asthma attacks. On the first 2 visits on 02/06 and 03/27 she was treated with prednisone and metered-dose inhalers were provided. On she was given a metered-dose inhaler and a prescription with 2 refills. Amoxicillin, Singulair with 5 refills and Advair with 5 refills. However, as noted unable to fill prescriptions. ALLERGIES Coded Allergies: No Known Allergies (03/31/17) Home Medications Active Scripts Salmeterol 50/Fluticasone 250 (Advair 250-50 Diskus) 1 PUFF IN BID #1 INH Ref 5 Prov: 03/31/17 History Medical History General CAD? No Angina: No AK: No Hypertension? No Hyperlipidemia? No CHF? No DVT? No PE? No COPD? No Asthma? Yes Anemia? No GERD? No Gastric ulcers? No GI Bleed? No Hernia? No Thyroid Problems? No Hypothyroidism? No CVA? No Seizures? No Diabetes? No Renal Insuffiency? No End Stage Renal Disease? No UTI? No Stones? No BPH? No GB Disease: No Nephritic Syndrome? No Asplenia? No Hepatitis? No Sickle Cell Disease? No Arthritis? No Migraines? No Cataracts? No Glaucoma? No MRSA? No HIV? No TB? No Anxiety? Yes Depression? Yes Cancer? 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 Hx LMP 1 Week Ago Social History Smoking Hx Smoker: Never Smoker Tobacco: No Alcohol Alcohol: No Review of Systems All Other Systems Reviewed and Negative Constitutional denies fever Respiratory shortness of breath Cardiovascular denies chest pain Physical Exam Vital Signs Vital Signs Date Time Temp Pulse Resp B/P Pulse O2 O2 Flow FiO2 Ox Delivery Rate 04/120 97.7 104 30 119/64 97 04/12 2221 97.7 121 30 132/60 98 General Appearance mild distress Eye Exam - bilateral eye normal exam, bilateral eye PERRL, bilateral eye EOMI Ear, Nose, Throat hearing grossly normal, normal ENT inspection Neck normal inspection, full range of motion Respiratory Status Yes: trachea midline, chest symmetrical. Lung Sounds bilateral: wheezing. 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 No Results/Orders Current Medication Orders Sig/Sujit Start time Last Medication Dose Route Stop Time Status Admin Albuterol 0 .STK-MED ONE 04/12 2333 DC IH Miscellaneous 0 .STK-MED ONE 04/12 2333 DC XX Prednisone 0 .STK-MED ONE 04/12 2333 DC .ROUTE Albuterol 2 PUFFS ONCE ONE 04/12 2315 DC 04/12 IH 04/12 2316 2335 Miscellaneous 1 UNIT ONCE ONE 04/12 2315 DC 04/12 XX 04/12 2316 2335 Prednisone 60 MG ONCE ONE 04/12 2245 DC 04/12 PO 04/12 2246 233 Albuterol/Ipratropium 0 .STK-MED ONE 04/12 2233 DC INH Albuterol/Ipratropium 3 ML ONCE ONE 04/12 2230 DC 04/12 INH 04/12 2231 233 Orders Procedure Date/time Status RT REQUEST ALBUTEROL INHALER 04/12 2308 Active RT REQUEST DUONEB 04/12 2227 Active Progress - 11:15 PM: The patient feels much better. Laying supine without any difficulty breathing. Lungs are clear. Departure Departure Disposition DC Home or Self Care(routine) Clinical Impression Primary Impression: Asthma exacerbation Qualifiers: Asthma severity: moderate Asthma persistence: unspecified Qualified Code: J45.901 - Unspecified asthma with (acute) exacerbation Condition STABLE Patient Instructions DI for Asthma -- Adult Additional Instructions Use inhaler 2 puffs 4 times a day as needed for wheezing or shortness of breath. Take prednisone as prescribed. Return if worsening shortness of breath. You are being provided with a list of physicians available for follow-up of your condition. Please call a physician on this list to arrange a follow-up appointment as soon as possible. Prescriptions Current Visit Scripts Prednisone (Prednisone 20MG Tab) 40 MG PO DAILY #8 TAB ED Critical Care Critical Care No at 0007
[2017-04-12] MEDS ORDERED: PREDNISONE20 MG PO (23:29)
[2017-04-12 23:40] VITALS: BP 119/64
== END 2017-04-12 23:59 | disposition home or self-care (01) ==
LOC: ER 22:17
DX: J45.901 Unspecified asthma with (acute) exacerbation (principal); F41.8 Other specified anxiety disorders